=== PATIENT | male | born 1945 | race Caucasian/White ===

== ENCOUNTER 2017-04-15 06:37 | Day surgery (SDC) | payer MEDICARE, BC ==
[2017-04-15] MEDS ORDERED: Sodium Chloride 0.9% 1,000 ML IV SCH (07:00)
[2017-04-15] MEDS ORDERED: ceFAZolin 2 GM in Sodium Chloride 0.9% 50 ML IV ONE (07:00)
[2017-04-15] MEDS ORDERED: metroNIDAZOLE/Normal Saline 500 MG in Premix Bag 1 BAG IV ONE (07:00)
[2017-04-15] MEDS ORDERED: Bupivacaine 0.5% 50 ML MDV ONE (07:02)
[2017-04-15] MEDS ORDERED: Lidocaine 1% with EPINEPHrine 1:100,000 50 ML MDV ONE (07:02)
[2017-04-15] MEDS ORDERED: Succinylcholine 200 MG/10 ML MDV ONE (07:28)
[2017-04-15] MEDS ORDERED: Propofol 200 MG/20 ML SDV ONE (07:28)
[2017-04-15] MEDS ORDERED: Glycopyrrolate 0.2 MG/ML 5 ML MDV ONE (07:28)
[2017-04-15] MEDS ORDERED: Rocuronium 50 MG/5 ML Vial ONE (07:28)
[2017-04-15] MEDS ORDERED: Ondansetron 4 MG/2 ML SDV ONE (07:28)
[2017-04-15] MEDS ORDERED: Neostigmine Methylsulfate 1 MG/ML 5 ML Syringe ONE (07:28)
[2017-04-15] MEDS ORDERED: Dexamethasone 4 MG/ML SDV ONE (07:28)
[2017-04-15] MEDS ORDERED: Ketorolac 60 MG/2 ML SDV ONE (09:03)
[2017-04-15] MEDS ORDERED: hydrOXYzine HCl 100 MG/2 ML SDV IM ONE (09:28)
[2017-04-15] MEDS: Acetaminophen/HYDROcodone 325-5 MG Tab PO PRN ×2 (13:17→21:09)
[2017-04-16] MEDS ORDERED: Pneumococcal Polyvalent-23 Vaccine 0.5 ML SDV IM ONE (01:00)
[2017-04-16] MEDS: Acetaminophen/HYDROcodone 325-5 MG Tab PO PRN ×2 (02:43→10:50)
--- NOTE | 2017-05-10 11:48 | DISCH ---
DISCHARGE DIAGNOSIS: Status post laparoscopic ventral hernia. SUMMARY OF HOSPITAL COURSE: A 71-year-old male who underwent a laparoscopic ventral hernia. The patient prior to discharge, his pain is well controlled. He had no nausea, vomiting, shortness of breath, or chest pain. DISCHARGE MEDICATIONS: Please see MAR. FOLLOWUP: With Surgery in 7 to 14 days. ACTIVITY: No lifting greater than 30 pounds x30 days.
--- NOTE | 2017-05-12 08:16 | OR ---
DATE OF PROCEDURE: 04/15/2017 PROCEDURE PERFORMED: Repair of laparoscopic ventral hernia, incarcerated, non-strangulated. ANESTHETIC: General/local. INDICATIONS: This is a pleasant 71-year-old male with incarcerated ventral hernia requiring repair. RISKS: Risks, benefits, alternatives, limitations, including, but not limited to infection, bleeding, perforation, injury to abdominal structures were explained to the patient and wished to proceed. PREOPERATIVE DIAGNOSIS: Ventral hernia. POSTOPERATIVE DIAGNOSIS: Ventral hernia. PROCEDURE IN DETAIL: The patient was placed in supine position. The ventral hernia was measured and found to be approximately 4.5 cm. This would be accessed by accessing the right abdomen. This was performed by anesthetizing the skin with lidocaine. A albertina was created on the skin. A Veress needle was used to enter the abdomen. A drop test was performed without abnormality. This was followed by an Optiview trocar after insufflation. No evidence of enterotomy or injury was noted. Two additional 5-mm ports will be entered under direct visualization, and the procedure was commenced. Lysis of adhesions was performed that was noted to be moderate in nature. The patient was noted to have omental incarceration. This was able to be reduced without resection of any omental mass. Once this was reduced, the defect was then again measured to be about 4-4.3 cm. A 15 cm mesh would then be used to close this with at least a 3 cm margin of mesh around this. This was introduced through the 10 mm port. A single stitch was created in this, and this was passed through the main area of the defect. This was then tacked in multiple locations in a standard 2-ring fashion. No abnormalities were noted. The air was removed. The wounds were closed with 3-0 Vicryl and 4-0 Vicryl after being thoroughly irrigated, and Dermabond was applied. The patient tolerated the procedure well. Mauro Hicks MD /[id number]
== END 2017-04-16 11:20 | disposition home or self-care (01) ==
LOC: JP.SDS 06:37 → JP.MS 10:00 → JP.SDS 04-16 11:20
PROVIDERS: ATTEND Surgery
DX: K43.6 Other and unspecified ventral hernia with obstruction, without gangrene (principal); I10 Essential (primary) hypertension; N40.0 Benign prostatic hyperplasia without lower urinary tract symptoms; R73.9 Hyperglycemia, unspecified; Z79.82 Long term (current) use of aspirin; Z79.899 Other long term (current) drug therapy; Z87.891 Personal history of nicotine dependence; Z23 Encounter for immunization
CPT/HCPCS: 49653; A9270; C1781; G0009; J0330; J0690; J1100; J1885; J2405; J2704; J2710; J3010; J3410; J7040; J7050; 90732

== ENCOUNTER 2017-04-16 22:50 | Emergency (ER) | payer MEDICARE, BC ==
--- NOTE | 2017-04-16 23:20 | EDM.PDOC ---
ED HPI GENERAL MEDICAL PROBLEM - General Chief Complaint: Genitourinary Problem Stated Complaint: UNABLE TO URINATE Time Seen by Provider: 04/16/17 23:08 Source of Information: Reports: Patient, RN Notes Reviewed History Limitations: Reports: No Limitations - History of Present Illness INITIAL COMMENTS - FREE TEXT/NARRATIVE: 71-year-old gentleman presents emergency department day complaint of difficulty with urination he is postop day 1 from an umbilical hernia repair, no other complaints - Related Data Allergies Allergy/AdvReac Type Severity Reaction Status Date / Time No Known Allergies Allergy Verified 04/16/17 23:15 Home Meds: Home Meds Aspirin [Adult Low Dose Aspirin EC] 81 mg PO DAILY 03/14/14 [History] Lisinopril 10 mg PO DAILY 03/14/14 [History] Multivitamin with Minerals [Multiple Vitamin] 1 tab PO DAILY 03/14/14 [History] Sildenafil [Viagra] 50 mg PO DAILY PRN 03/14/14 [History] Copper/Ginseng/Saw Palm/Zinc [Prostate Health Formula] 1 cap PO DAILY 04/11/17 [ History] Tamsulosin [Tamsulosin 24 Hr] 0.4 mg PO DAILY 04/11/17 [History] Past Medical History Cardiovascular History: Reports: Hypertension Gastrointestinal History: Reports: Colon Polyp Genitourinary History: Reports: BPH Musculoskeletal History: Reports: Osteoarthritis - Infectious Disease History Infectious Disease History: Reports: Chicken Pox, Measles, Rheumatic Fever, Shingles - Past Surgical History Cardiovascular Surgical History: Reports: None GI Surgical History: Reports: Colonoscopy Male Surgical History: Reports: None Musculoskeletal Surgical History: Reports: None Social & Family History - Tobacco Use Smoking Status *Q: Never Smoker Second Hand Smoke Exposure: No - Caffeine Use Caffeine Use: Reports: None - Alcohol Use Days Per Week of Alcohol Use: 6 Number of Drinks Per Day: 2 Total Drinks Per Week: 12 - Recreational Drug Use Recreational Drug Use: No ED ROS GENERAL - Review of Systems Review Of Systems: See Below Constitutional: Reports: No Symptoms GI/Abdominal: Reports: Abdominal Pain : Reports: Urinary Retention ED EXAM, RENAL/ - Physical Exam Exam: See Below Exam Limited By: No Limitations General Appearance: Alert, Moderate Distress GI/Abdominal: Soft, Non-Tender (After [place] catheter replacement) Course - Vital Signs Last Recorded V/S: Last Vital Signs Temp 97.0 F 04/16/17 23:14 Pulse 102 H 04/16/17 23:14 Resp 16 04/16/17 23:14 BP 200/122 H 04/16/17 23:14 Pulse Ox 98 04/16/17 23:14 Departure - Departure Time of Disposition: 23:19 Disposition: Home, Self-Care 01 Condition: Good Clinical Impression: Urinary retention - Discharge Information Referrals: Jermaine Jones MD [Primary Care Provider] - Additional Instructions: Continue to use the leg bag for comfort care, recommend follow-up with your primary care in the next 1-2 days for reevaluation, call return to the emergency department worsening of symptoms - Assessment/Plan Plan: Assessment Acuity = acute Site and laterality = urinary retention complicated in a patient with postop day 1 umbilical hernia repair and history of BPH Etiology = probable combination of BPH and recent surgery Manifestations = abdominal pain now resolved Location of injury = Home Lab values = none Plan Leg bag is placed will have him follow-up with his primary care in 2-3 days for reevaluation Patient was in agreement with the plan all questions were answered, they were instructed to return to the emergency department or call for worsening symptoms. This note was dictated using [employer]ero voice recognition software please call with any questions.
== END 2017-04-16 23:53 | disposition home or self-care (01) ==
LOC: JP.ED 22:50
DX: R33.9 Retention of urine, unspecified (principal); I10 Essential (primary) hypertension; Z79.82 Long term (current) use of aspirin; Z79.899 Other long term (current) drug therapy; Z98.890 Other specified postprocedural states
CPT/HCPCS: 51702; 51798; 99283; 99283-25

== ENCOUNTER 2018-03-12 08:04 | Day surgery (SDC) | payer MEDICARE, BC ==
[2018-03-12] MEDS: Sodium Chloride 0.9% 1,000 ML IV SCH (08:30)
[2018-03-12] MEDS: ceFAZolin 2 GM in Premix Bag 1 BAG IV ONE (10:06)
[2018-03-12] MEDS ORDERED: Midazolam 1 MG/ML 2 ML SDV ONE (10:12)
[2018-03-12] MEDS ORDERED: Propofol 200 MG/20 ML SDV ONE (10:12)
[2018-03-12] MEDS ORDERED: fentaNYL 100 MCG/2 ML SDV ONE (10:12)
[2018-03-12] MEDS: Bupivacaine 0.5% 50 ML MDV ONE (10:28)
[2018-03-12] MEDS: Lidocaine 1% with EPINEPHrine 1:100,000 50 ML MDV ONE (10:28)
[2018-03-12] MEDS: Bacitracin Oint 1 GM U/D Packet ONE (10:41)
[2018-03-12] MEDS: Acetaminophen/HYDROcodone 325-5 MG Tab PO ONE (11:57)
--- NOTE | 2018-03-13 07:59 | OR ---
DATE OF PROCEDURE: 03/12/2018 PROCEDURES: Evacuation of hematoma, right groin. COMPLICATIONS: None. 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 ANESTHESIA: MAC/local. RISKS: Risks, benefits, alternatives, and limitations including, but not limited to infection, bleeding, injury to abdominal structures such as blood vessels, bowel, bladder; bleeding; and other risks were explained to the patient, and they wished to proceed. PROCEDURE IN DETAIL: The patient was placed in supine position. The hematoma was palpated. A single albertina was created in the skin with a 15 blade, after anesthetizing with lidocaine. A Anna Marie was used to dissect down to the hematoma, which was noted to be very dark, old, clotted blood. Using suction and irrigation, majority of the clot was removed without difficulty. A 10 round drain was placed with 3-0 Vicryl suture. The dressings were applied. The patient tolerated the procedure well. Mauro Hicks MD /[id number]
== END 2018-03-12 12:20 | disposition home or self-care (01) ==
LOC: JP.SDS 08:04
PROVIDERS: ATTEND Surgery
DX: S30.1XXA Contusion of abdominal wall, initial encounter (principal); I10 Essential (primary) hypertension; X58.XXXA Exposure to other specified factors, initial encounter
CPT/HCPCS: A9270-GY; J0690; J2250; J2704; J3010; J3490; J7030

== ENCOUNTER 2019-07-24 21:02 | Emergency (ER) | payer BC, MEDICARE ==
[2019-07-24] MEDS ORDERED: Lidocaine 2% Jelly 10 ML Urojet MUCMEM ONE (21:34)
--- NOTE | 2019-07-24 22:18 | EDM.PDOC ---
ED HPI GENERAL MEDICAL PROBLEM - General Chief Complaint: Genitourinary Problem Stated Complaint: UNABLE TO URINATE Time Seen by Provider: 07/24/19 22:12 Source of Information: Reports: Patient, Old Records, RN History Limitations: Reports: No Limitations - History of Present Illness INITIAL COMMENTS - FREE TEXT/NARRATIVE: 74 yo male with a pHx of BPH presents with urinary retention. Missed a dose of his Flomax last night. Has had to be catheterized in the past for similar. 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 CLERK: Reports: Other (see below) (none) - Related Data Allergies Allergy/AdvReac Type Severity Reaction Status Date / Time No Known Allergies Allergy Verified 07/24/19 21:48 Home Meds: Home Meds Aspirin [Adult Low Dose Aspirin EC] 81 mg PO DAILY 03/14/14 [History] Lisinopril 10 mg PO DAILY 03/14/14 [History] Multivitamin with Minerals [Multiple Vitamin] 1 tab PO DAILY 03/14/14 [History] Tamsulosin [Tamsulosin 24 Hr] 0.4 mg PO DAILY 04/11/17 [History] Past Medical History HEENT History: Reports: Impaired Vision Cardiovascular History: Reports: Hypertension Gastrointestinal History: Reports: Colon Polyp Genitourinary History: Reports: BPH Musculoskeletal History: Reports: Osteoarthritis Dermatologic History: Reports: Eczema - Infectious Disease History Infectious Disease History: Reports: Chicken Pox, Rheumatic Fever, Shingles - Past Surgical History HEENT Surgical History: Reports: None GI Surgical History: Reports: Colonoscopy, Hernia, Inguinal, Hernia Repair/Other Male Surgical History: Reports: Circumcision Social & Family History - Family History Family Medical History: Noncontributory - Tobacco Use Smoking Status *Q: Never Smoker Second Hand Smoke Exposure: No - Caffeine Use Caffeine Use: Reports: Coffee - Alcohol Use Date of Last Drink: 07/23/19 - Recreational Drug Use Recreational Drug Use: No Drug Use in Last 12 Months: Yes ED ROS GENERAL - Review of Systems Review Of Systems: See Below Constitutional: Reports: No Symptoms HEENT: Reports: No Symptoms Respiratory: Reports: No Symptoms Cardiovascular: Reports: No Symptoms GI/Abdominal: Reports: No Symptoms : Reports: Urinary Retention Skin: Reports: No Symptoms ED EXAM, RENAL/ - Physical Exam Exam: See Below Exam Limited By: No Limitations General Appearance: Alert, WD/WN, No Apparent Distress Eye Exam: Bilateral Eye: Normal Inspection Ears: Normal External Exam, Normal Canal, Hearing Grossly Normal, Normal TMs Nose: Normal Inspection, No Blood Throat/Mouth: Normal Inspection, Normal Lips, Normal Voice, No Airway Compromise Head: Atraumatic, Normocephalic Neck: Normal Inspection Respiratory/Chest: No Respiratory Distress, No Accessory Muscle Use Cardiovascular: Regular Rate, Rhythm, No Edema GI/Abdominal: Normal Bowel Sounds, Soft, Non-Tender, No Distention, Other (exam after he had had over 1200 ml of urine drained via cortez) Back Exam: Normal Inspection. No: CVA Tenderness (R), CVA Tenderness (L) Extremities: Normal Inspection, Normal Range of Motion, Non-Tender, No Pedal Edema Neurological: Alert, Oriented, CN II-XII Intact, Normal Cognition, No Motor/ Sensory Deficits Psychiatric: Normal Affect, Normal Mood Skin Exam: Warm, Dry, Intact, Normal Color, No Rash Course - Vital Signs Last Recorded V/S: Last Vital Signs Temp 36.1 C 07/24/19 21:30 Pulse 83 07/24/19 21:30 Resp 18 07/24/19 21:30 BP 170/98 H 07/24/19 22:06 Pulse Ox 96 07/24/19 21:30 - Orders/Labs/Meds Orders: Active Orders 24 hr Category Date Time Status Bladder Scan [RC] ASDIRECTED Care 07/24/19 21:07 Active Cortez Catheter Insertion [Insert Urinary Catheter] [OM. Care 07/24/19 21:30 Ordered PC] Q24H Urinary Catheter Assessment [RC] ASDIRECTED Care 07/24/19 21:18 Active Labs: Laboratory Tests 07/24/19 Range/Units 21:51 Urine Color Yellow (YELLOW) Urine Appearance Clear (CLEAR) Urine pH 7.0 (5.0-8.0) Ur Specific [place] 1.020 (1.008-1.030) Urine Protein Negative (NEGATIVE) mg/dL Urine Glucose (UA) Negative (NEGATIVE) mg/dL Urine Ketones Negative (NEGATIVE) mg/dL Urine Occult Blood Negative (NEGATIVE) Urine Nitrite Negative (NEGATIVE) Urine Bilirubin Negative (NEGATIVE) Urine Urobilinogen 0.2 (0.2-1.0) EU/dL Ur Leukocyte Esterase Negative (NEGATIVE) Urine RBC Not seen (0-5) Urine WBC Not seen (0-5) Ur Epithelial Cells Not seen Amorphous Sediment Few Urine Bacteria Not seen Urine Mucus Not seen Meds: Medications Discontinued Medications Generic Name Dose Route Start Last Admin Trade Name Freq PRN Reason Stop Dose Admin Lidocaine HCl 10 ml 07/24/19 21:34 07/24/19 21:37 Xylocaine 2% Jelly MUCMEM 07/24/19 21:35 10 ml ONETIME ONE Administration Departure - Departure Time of Disposition: 22:17 Disposition: Home, Self-Care 01 Condition: Good Clinical Impression: Acute urinary retention BPH (benign prostatic hyperplasia) Qualifiers: Lower urinary tract symptom presence: unspecified whether lower urinary tract symptoms present Qualified Code(s): N40.0 - Benign prostatic hyperplasia without lower urinary tract symptoms - Discharge Information *PRESCRIPTION DRUG MONITORING PROGRAM REVIEWED*: No *COPY OF PRESCRIPTION DRUG MONITORING REPORT IN PATIENT BRISEYDA: No Instructions: Acute Urinary Retention, Male, [id number] Referrals: Jermaine Jones MD [Primary Care Provider] - Additional Instructions: Continue current meds. See your urologist or family doctor this next week to determine if it is OK to remove your catheter. Sepsis Event Note - Focused Exam Vital Signs: Vital Signs Temp Pulse Resp BP Pulse Ox 07/24/19 22:06 170/98 H 07/24/19 21:30 36.1 C 83 18 203/125 H 96 Date Exam was Performed: 07/24/19 Time Exam was Performed: 22:12 - My Orders Last 24 Hours: My Active Orders 07/24/19 21:07 Bladder Scan [RC] ASDIRECTED 07/24/19 21:18 Urinary Catheter Assessment [RC] ASDIRECTED 07/24/19 21:30 Cortez Catheter Insertion [Insert Urinary Catheter] [OM.PC] Q24H - Assessment/Plan Last 24 Hours: My Active Orders 07/24/19 21:07 Bladder Scan [RC] ASDIRECTED 07/24/19 21:18 Urinary Catheter Assessment [RC] ASDIRECTED 07/24/19 21:30 Cortez Catheter Insertion [Insert Urinary Catheter] [OM.PC] Q24H
== END 2019-07-24 22:40 | disposition home or self-care (01) ==
LOC: JP.ED 21:02
DX: R33.9 Retention of urine, unspecified (principal); N40.1 Benign prostatic hyperplasia with lower urinary tract symptoms; I10 Essential (primary) hypertension; Z79.82 Long term (current) use of aspirin; Z79.899 Other long term (current) drug therapy
CPT/HCPCS: 51702; 51798; 81001; 99283; 99283-25

== ENCOUNTER 2021-07-13 07:02 | Day surgery (SDC) | payer MEDICARE ==
[~2021-07-13 07:02] MED LIST: Bupivacaine 0.5%/EPINEPHrine 1:200,000 50 ML MDV ONE
[2021-07-13] MEDS ORDERED: fentaNYL 100 MCG/2 ML SDV ONE (07:19)
[2021-07-13] MEDS ORDERED: Midazolam 1 MG/ML 2 ML SDV ONE (07:19)
[2021-07-13] MEDS ORDERED: Propofol 200 MG/20 ML SDV ONE ×2 (07:19→08:33)
[2021-07-13] MEDS ORDERED: Sodium Chloride 0.9% 1,000 ML IV SCH (07:30)
[2021-07-13] MEDS ORDERED: ceFAZolin 2 GM in Premix Bag 1 BAG IV ONE (08:10)
[2021-07-13] MEDS ORDERED: metroNIDAZOLE/Normal Saline 500 MG in Premix Bag 1 BAG IV ONE (08:10)
[2021-07-13] MEDS ORDERED: Ropivacaine 34 ML, dexAMETHasone 8 MG, EPINEPHrine 0.4 MG, Sodium Chloride 0.9% 43.6 ML NERVRT SCH ×4 (08:25)
[2021-07-13] MEDS ORDERED: Bupivacaine 0.5%/EPINEPHrine 1:200,000 30 ML SDV INFILT ONE (08:33)
[2021-07-13] MEDS ORDERED: fentaNYL 100 MCG/2 ML SDV IVPUSH ONE ×2 (09:26→09:31)
[2021-07-13] MEDS ORDERED: Acetaminophen/HYDROcodone 325-10 MG Tab PO PRN (10:23)
== END 2021-07-13 13:00 | disposition home or self-care (01) ==
LOC: JP.SDS 07:02
PROVIDERS: ATTEND Surgery
DX: K40.31 Unilateral inguinal hernia, with obstruction, without gangrene, recurrent (principal); I10 Essential (primary) hypertension; N40.0 Benign prostatic hyperplasia without lower urinary tract symptoms; F03.90 Unspecified dementia, unspecified severity, without behavioral disturbance, psychotic disturbance, mood disturbance, and anxiety; E11.9 Type 2 diabetes mellitus without complications; Z79.899 Other long term (current) drug therapy; Z87.891 Personal history of nicotine dependence; Z98.890 Other specified postprocedural states
CPT/HCPCS: 36415; 49521; 80053; 85027; A9270; C1713; C1781; J0171; J0690; J1100; J2250; J2704; J2795; J3010; J3490; J7030